=== PATIENT | female | born 1975 | race Caucasian/White ===

== ENCOUNTER → 2017-10-19 | Outpatient (CLI) | payer OTHER | LOC: FIMAGING 09:42 | PROVIDERS: ATTEND Internal Medicine | DX: N64.4 Mastodynia (principal) ==

== ENCOUNTER 2018-03-18 08:49 | Emergency (ER) | payer OTHER ==
--- NOTE | 2018-03-18 09:00 | EDPHY ---
H & P Time Seen by Provider: 03/18/18 08:59 HPI/ROS: Chief complaint. Dizziness HPI. This patient was seen by our PA and not by myself ROS 10 systems were reviewed and negative with the exception of the elements mentioned in the history of present illness Smoking Status: Never smoked Constitutional: Initial Vital Signs Temperature (C) 36.5 C 03/18/18 08:52 Heart Rate 57 L 03/18/18 08:52 Respiratory Rate 18 03/18/18 08:52 Blood Pressure 154/115 H 03/18/18 08:52 O2 Sat (%) 98 03/18/18 08:52 O2 Delivery Mode Room Air Allergies/Adverse Reactions: No Known Allergies Allergy (Unverified 03/18/18 08:55) Home Medications: Medication Instructions Recorded Levothyroxine 03/18/18 Meclizine HCl [Meclizine HCl 25 mg 25 mg PO Q6 PRN #12 tab 03/18/18 (RX,OTC)] Medical Decision Making - Data Points Laboratory Results: Laboratory Results 03/18/18 09:15 03/18/18 09:15 03/18/18 03/18/18 03/18/18 09:21 09:15 09:15 WBC RBC Hgb POC Hgb 13.3 gm/dL gm/dL (12.6-16.3) Hct POC Hct 39 % % (38-47) MCV MCH MCHC RDW Plt Count MPV Neut % (Auto) Lymph % (Auto) Mineral % (Auto) Eos % (Auto) Baso % (Auto) Nucleat RBC Rel Count Absolute Neuts (auto) Absolute Lymphs (auto) Absolute Monos (auto) Absolute Eos (auto) Absolute Basos (auto) Absolute Nucleated RBC Immature Gran % Immature Gran # POC Sodium 143 mEq/L mEq/L (135-145) Sodium 138 mEq/L mEq/L (135-145) POC Potassium 3.8 mEq/L mEq/L (3.3-5.0) Potassium 3.9 mEq/L mEq/L (3.5-5.2) POC Chloride 105 mEq/L mEq/L (97-110) Chloride 108 mEq/L mEq/L (97-110) Carbon Dioxide 24 mEq/l mEq/l (22-31) POC Total CO2 23 mEq/L mEq/L (22-31) Anion Gap 6 mEq/L mEq/L (6-14) POC BUN 17 mg/dL mg/dL (7-23) BUN 19 mg/dL mg/dL (7-23) Creatinine 0.8 mg/dL mg/dL (0.6-1.0) POC Creatinine 0.8 mg/dL mg/dL (0.6-1.0) Estimated GFR > 60 Glucose 107 mg/dL H mg/dL (70-100) POC Glucose 111 mg/dL H mg/dL (70-100) Calcium 9.1 mg/dL mg/dL (8.5-10.4) Beta HCG, Qual NEGATIVE 03/18/18 09:15 WBC 4.17 10^3/uL 10^3/uL (3.80-9.50) RBC 4.34 10^6/uL 10^6/uL (4.18-5.33) Hgb 14.1 g/dL g/dL (12.6-16.3) POC Hgb Hct 41.3 % % (38.0-47.0) POC Hct MCV 95.2 fL fL (81.5-99.8) MCH 32.5 pg pg (27.9-34.1) MCHC 34.1 g/dL g/dL (32.4-36.7) RDW 12.1 % % (11.5-15.2) Plt Count 196 10^3/uL 10^3/uL (150-400) MPV 10.8 fL fL (8.7-11.7) Neut % (Auto) 59.8 % % (39.3-74.2) Lymph % (Auto) 29.3 % % (15.0-45.0) Mineral % (Auto) 8.2 % % (4.5-13.0) Eos % (Auto) 2.2 % % (0.6-7.6) Baso % (Auto) 0.5 % % (0.3-1.7) Nucleat RBC Rel Count 0.0 % % (0.0-0.2) Absolute Neuts (auto) 2.50 10^3/uL 10^3/uL (1.70-6.50) Absolute Lymphs (auto) 1.22 10^3/uL 10^3/uL (1.00-3.00) Absolute Monos (auto) 0.34 10^3/uL 10^3/uL (0.30-0.80) Absolute Eos (auto) 0.09 10^3/uL 10^3/uL (0.03-0.40) Absolute Basos (auto) 0.02 10^3/uL 10^3/uL (0.02-0.10) Absolute Nucleated RBC 0.00 10^3/uL 10^3/uL (0-0.01) Immature Gran % 0.0 % % (0.0-1.1) Immature Gran # 0.00 10^3/uL 10^3/uL (0.00-0.10) POC Sodium Sodium POC Potassium Potassium POC Chloride Chloride Carbon Dioxide POC Total CO2 Anion Gap POC BUN BUN Creatinine POC Creatinine Estimated GFR Glucose POC Glucose Calcium Beta HCG, Qual Medications Given: Discontinued Medications Sodium Chloride (Ns) 1,000 mls @ 0 mls/hr IV ONCE ONE; Wide Open PRN Reason: Protocol Stop: 03/18/18 09:10 Last Admin: 03/18/18 09:24 Dose: 1,000 mls Sodium Chloride (Ns) 1,000 mls @ 0 mls/hr IV EDNOW ONE; Wide Open PRN Reason: Protocol Stop: 03/18/18 11:02 Last Admin: 03/18/18 11:09 Dose: 1,000 mls Lorazepam (Ativan Injection) 1 mg IVP EDNOW ONE Stop: 03/18/18 09:10 Last Admin: 03/18/18 10:32 Dose: Not Given Meclizine HCl (Meclizine Hcl) 12.5 mg PO EDNOW ONE Stop: 03/18/18 09:29 Last Admin: 03/18/18 09:32 Dose: 12.5 mg Meclizine HCl (Meclizine Hcl) 12.5 mg PO EDNOW ONE Stop: 03/18/18 10:39 Last Admin: 03/18/18 10:43 Dose: 12.5 mg Ondansetron HCl (Zofran) 4 mg IVP EDNOW ONE Stop: 03/18/18 09:29 Last Admin: 03/18/18 09:34 Dose: 4 mg Promethazine HCl (Phenergan) 12.5 mg IVP ONCE ONE Stop: 03/18/18 09:11 Last Admin: 03/18/18 10:32 Dose: Not Given Point of Care Test Results: Chemistry 03/18/18 09:21 POC Sodium 143 mEq/L mEq/L (135-145) POC Potassium 3.8 mEq/L mEq/L (3.3-5.0) POC Chloride 105 mEq/L mEq/L (97-110) POC Total CO2 23 mEq/L mEq/L (22-31) POC BUN 17 mg/dL mg/dL (7-23) POC Creatinine 0.8 mg/dL mg/dL (0.6-1.0) POC Glucose 111 mg/dL H mg/dL (70-100) ISTAT H&H 03/18/18 09:21 POC Hgb 13.3 gm/dL gm/dL (12.6-16.3) POC Hct 39 % % (38-47) Departure - Departure Disposition: Home, Routine, Self-Care Clinical Impression: BPPV (benign paroxysmal positional vertigo), Eustachian tube dysfunction Condition: Good Instructions: Vertigo (ED), Dizziness (ED) Additional Instructions: Ojlw-lxk-mcgkolf Flonase or Rhinocort daily for eustachian tube dysfunction. You may use [id number] Sudafed every 6 hr as needed for nasal congestion. Take Meclizine every 4-6 hours as needed for dizziness. Consume a minimum of 8-10 glasses of water or electrolyte fluid replacement drinks that include Gatorade, Powerade, Pedialyte. Rest as much as possible until you are feeling better. If symptoms persist greater than 3 days, follow-up with PCP or physical therapy for vertigo treatment consisting of Fidencio maneuver. Referrals: Morena No MD [Primary Care Provider] - As per Instructions Prescriptions: Meclizine HCl [Meclizine HCl 25 mg (RX,OTC)] 25 mg PO Q6 PRN #12 tab PRN Reason: Dizziness
[2018-03-18] MEDS ORDERED: LORazepam 2 MG/ML INJ IVP ONE (09:09)
[2018-03-18] MEDS ORDERED: NS 1,000 ML IV ONE ×2 (09:09→11:01)
[2018-03-18] MEDS ORDERED: PROMETHAZINE HCL 25 MG/ML INJ IVP ONE (09:10)
--- NOTE | 2018-03-18 09:13 | EDPHY ---
H & P Stated Complaint: Bilat numbness/dizziness Source: Patient, Family (Sister) Exam Limitations: No limitations - Personal History LMP (Females 10-55): Now Current Tetanus/Diphtheria Vaccine: Yes - Medical/Surgical History Hx Asthma: No Hx Chronic Respiratory Disease: No Hx Diabetes: No Hx Cardiac Disease: No Hx Renal Disease: No Hx Cirrhosis: No Hx Alcoholism: No Other PMH: hypothyroidism - Social History Smoking Status: Never smoked Time Seen by Provider: 03/18/18 08:59 HPI/ROS: HPI: This is a 43-year-old female who presents with Chief Complaint: Bilat numbness/dizziness Location: Head Quality: Dizziness Duration: 1-2 hours prior to arrival Signs and Symptoms: no fever, no nausea, no vomiting, no photophobia, no noise sensitivity, no neck stiffness, no ear pain, no tinnitus, no nasal congestion, no sinus pressure, no weakness, no radiation, no aura, + right ear pressure x1 week Timing: Acute, constant Severity: Moderate Context: Patient reports that she rolled over in bed to the right when she had sudden onset of nausea and dizziness described as the room spinning. She reports that her vision went black with white spots but she did not lose consciousness. She reports that when she moves her head side to side or changes position her dizziness increases. Mother has a history of vertigo. No recent upper respiratory infections. But she does report that she feels like her right ear has been clock for the last 1 week. No change in elevations. No recent alcohol, drug use. Nontobacco user. After the incident occurred she reports that she became anxious and both of her arms became numb but this has slowly resolved. She also reports that her heart started to race and she felt cardiac awareness but denies any chest pain, shortness of breath, palpitations at this time. She is contributing this to being anxious about her situation. Again she has none of these complaints at this time. Modifying Factors: None Comment: ROS: A comprehensive 10 system review of systems is otherwise negative aside from elements mentioned in the history of present illness. MEDICAL/SURGICAL/SOCIAL HISTORY: Medical history: Hypothyroidism. Currently on her menses. Surgical history: Denies Social history: Employed. Nonsmoker. Family history noncontributory. CONSTITUTIONAL: Nontoxic-appearing, well-developed, well-nourished slightly anxious middle-aged white female, sister at bedside, awake and alert, no obvious distress HEENT: Atraumatic and normocephalic, PERRL, EOMI. Nares patent; no rhinorrhea; no nasal mucosal edema. Left Tympanic membranes clear. Right tympanic membrane shows effusion but no erythema, bulging. Oropharynx clear, no exudate and moist pink mucosa. Airway patent. No lymphadenopathy. No meningismus. No Carotid bruits. Cardiovascular: Normal S1/S2, regular rate, regular rhythm, without murmur rub or gallop. PULMONARY/CHEST: Symmetrical and nontender. Clear to auscultation bilaterally. Good air movement. No accessory muscle usage. ABDOMEN: Soft, nondistended, nontender, no rebound, no guarding, no peritoneal signs, no masses or organomegaly. No CVAT. EXTREMITIES: 2/2 pulses, strength 5/5, no deformities, no clubbing, no cyanosis or edema. NEUROLOGICAL: no focal neuro deficits. GCS 15. Cranial nerves 2-12 grossly intact. Normal dzoylx-zl-jvrn test. Normal htiq-zy-[id number] test. Normal Romberg testing. Positive dizziness with 1 beat nystagmus left greater than right with Dutton-Hallpike maneuver. SKIN: Warm and dry, no erythema. no rash. Good capillary refill. (Yary Bose) Constitutional: Initial Vital Signs Temperature (C) 36.5 C 03/18/18 08:52 Heart Rate 57 L 03/18/18 08:52 Respiratory Rate 18 03/18/18 08:52 Blood Pressure 154/115 H 03/18/18 08:52 O2 Sat (%) 98 03/18/18 08:52 O2 Delivery Mode Room Air Allergies/Adverse Reactions: No Known Allergies Allergy (Unverified 03/18/18 08:55) Home Medications: Medication Instructions Recorded Levothyroxine 03/18/18 Meclizine HCl [Meclizine HCl 25 mg 25 mg PO Q6 PRN #12 tab 03/18/18 (RX,OTC)] Medical Decision Making ED Course/Re-evaluation: Vital signs reviewed and show elevated blood pressure upon arrival. Patient has positive nystagmus with Kassi-Hallpike maneuver consistent with BPPV IV access, laboratory studies, medications ordered Given 1 L normal saline, IV promethazine 12.5 mg, IV Ativan 1 mg 0927: Notified by RN that patient is refusing to take Phenergan and Ativan due to not wanting medications that cause sedative properties. Long discussion at bedside with patient and sister regarding medications to treat vertigo and the different options. They are agreeable to take IV Zofran 4 mg and p.o. Meclizine 12.5 mg. 0933: Notified by tech that i-STAT results are back and no signs of anemia, electrolyte imbalance, acute kidney injury. 1035: Notified by nurse that nausea has subsided but mild dizziness continues. Patient given another PO 12.5 mg of meclizine another 1 L normal saline any clean 2 L normal saline total. She is resistant to any other medications. 1300: Reassessed patient who reports that she has 50% relief of symptoms. Requesting to be discharged home with follow-up with primary care provider. Sister at bedside. No neurological deficits to warrant Head CT imaging at this time or signs of CVA /temporal arteritis/Paulson's palsy Patient Has right eustachian tube dysfunction with effusion but no delfina infection. This is likely contributing to her condition. Patient was advised to obtain [id number] nasal steroid sprays. This patient was seen under the supervision of my secondary supervising physician. I evaluated care for this patient with attending. Discussed this patient with Dr. Paris. (Yary Bose) I did not see this patient while she was in the emergency department. However her care was discussed with the PA while the patient was in the department. I agree with treatment plan and management (Christopher Paris) Differential Diagnosis: Dizziness including but not limited to peripheral and central causes of vertigo , orthostatic causes including dehydration, and blood loss. (Yary Bose) - Data Points Laboratory Results: Laboratory Results 03/18/18 09:15 03/18/18 09:15 Medications Given: Discontinued Medications Sodium Chloride (Ns) 1,000 mls @ 0 mls/hr IV ONCE ONE; Wide Open PRN Reason: Protocol Stop: 03/18/18 09:10 Last Admin: 03/18/18 09:24 Dose: 1,000 mls Sodium Chloride (Ns) 1,000 mls @ 0 mls/hr IV EDNOW ONE; Wide Open PRN Reason: Protocol Stop: 03/18/18 11:02 Last Admin: 03/18/18 11:09 Dose: 1,000 mls Lorazepam (Ativan Injection) 1 mg IVP EDNOW ONE Stop: 03/18/18 09:10 Last Admin: 03/18/18 10:32 Dose: Not Given Meclizine HCl (Meclizine Hcl) 12.5 mg PO EDNOW ONE Stop: 03/18/18 09:29 Last Admin: 03/18/18 09:32 Dose: 12.5 mg Meclizine HCl (Meclizine Hcl) 12.5 mg PO EDNOW ONE Stop: 03/18/18 10:39 Last Admin: 03/18/18 10:43 Dose: 12.5 mg Ondansetron HCl (Zofran) 4 mg IVP EDNOW ONE Stop: 03/18/18 09:29 Last Admin: 03/18/18 09:34 Dose: 4 mg Promethazine HCl (Phenergan) 12.5 mg IVP ONCE ONE Stop: 03/18/18 09:11 Last Admin: 03/18/18 10:32 Dose: Not Given Point of Care Test Results: Chemistry 03/18/18 09:21 POC Sodium 143 mEq/L mEq/L (135-145) POC Potassium 3.8 mEq/L mEq/L (3.3-5.0) POC Chloride 105 mEq/L mEq/L (97-110) POC Total CO2 23 mEq/L mEq/L (22-31) POC BUN 17 mg/dL mg/dL (7-23) POC Creatinine 0.8 mg/dL mg/dL (0.6-1.0) POC Glucose 111 mg/dL H mg/dL (70-100) ISTAT H&H 03/18/18 09:21 POC Hgb 13.3 gm/dL gm/dL (12.6-16.3) POC Hct 39 % % (38-47) Departure - Departure Disposition: Home, Routine, Self-Care Clinical Impression: BPPV (benign paroxysmal positional vertigo), Eustachian tube dysfunction Condition: Good Instructions: Vertigo (ED), Dizziness (ED) Additional Instructions: Pupl-kgv-klugldw Flonase or Rhinocort daily for eustachian tube dysfunction. You may use [id number] Sudafed every 6 hr as needed for nasal congestion. Take Meclizine every 4-6 hours as needed for dizziness. Consume a minimum of 8-10 glasses of water or electrolyte fluid replacement drinks that include Gatorade, Powerade, Pedialyte. Rest as much as possible until you are feeling better. If symptoms persist greater than 3 days, follow-up with PCP or physical therapy for vertigo treatment consisting of Fidencio maneuver. Referrals: Morena No MD [Primary Care Provider] - As per Instructions Prescriptions: Meclizine HCl [Meclizine HCl 25 mg (RX,OTC)] 25 mg PO Q6 PRN #12 tab PRN Reason: Dizziness
[2018-03-18] MEDS ORDERED: MECLIZINE HCL 25 MG TAB PO ONE ×2 (09:28→10:38)
[2018-03-18] MEDS ORDERED: ONDANSETRON 4 MG/2 ML VIAL IVP ONE (09:28)
[2018-03-18 09:41] LABS: PLATELET COUNT 196 10^3/uL (150-400)
[2018-03-18 13:04] VITALS: BP 135/90
== END 2018-03-18 13:02 | disposition home or self-care (01) ==
DX: R42 Dizziness and giddiness (principal); E03.9 Hypothyroidism, unspecified; E86.9 Volume depletion, unspecified
CPT/HCPCS: 82435-PO; 82565-PO; 82947-PO; 84132-PO; 84295-PO; 84520-PO; 85014-ER; 96374; J2060; J2405; J2550